=== PATIENT | female | born 2005 | race Caucasian/White ===

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

== ENCOUNTER 2025-03-06 12:03 | Emergency (ER) | payer OTHER, SELFPAY ==
--- NOTE | ~2025-03-06 | XR_ITS ---
EXAMINATION: XR finger 1st LT min 2V DATE: 03/06/2025 12:56 INDICATION: Left thumb nail injury TECHNIQUE: Dorsal palmar, lateral and oblique views of the left first digit were obtained COMPARISON: None FINDINGS: Bone alignment is normal. No fracture. Joint spaces are normal. Mild elevation the left thumb nail. S oft tissues are otherwise unremarkable. IMPRESSION: 1. No osseous abnormality. Reviewed, dictated and finalized at location B. IMPRESSION: 1. No osseous abnormality.
--- NOTE | 2025-03-06 12:05 | ED.UPPEXIN ---
HPI - Extremity Injury (Upper) General Chief Complaint: Wound/Laceration Stated Complaint: left thumb nail injury Time Seen by Provider: 03/06/25 12:04 Source: patient Mode of arrival: ambulatory Limitations: no limitations History of Present Illness HPI narrative: Kimberly is a 19-year-old female patient presenting to the clinic today with complaints of a left thumbnail injury. She reports she was working with a horse and the horse kicked her. Horse injured the left thumbnail. She denies any pain to the finger otherwise. Tetanus is up-to-date Related Data Allergies Allergy/AdvReac Type Severity Reaction Status Date / Time amoxicillin Allergy Mild Unknown Verified 03/06/25 12:13 Penicillins Allergy Unknown Unknown Verified 03/06/25 12:13 POTASSIUM CLAVULANATE Allergy Mild Unknown Uncoded 03/06/25 12:13 Review of Systems Review of Systems: Pertinent positives per HPI. Patient denies any fever, chills, rash, headache, visual changes, dizziness, cough, shortness of breath, chest pain, palpitations, nausea, vomiting, diarrhea, constipation, abdominal pain, or any urinary issues. PMFSH Comments At the time of my signature, I reviewed and agree with the nursing past medical, surgical, social, and family history. There is no relevant family history pertinent to the patient complaint. Exam Narrative: General: Well-developed, well nourished, in no apparent distress Head: Normocephalic, atraumatic. Cardio: Regular rate and rhythm, s1 and s2 normal, no murmur appreciated. Resp: Clear to auscultation bilaterally, no rhonchi, rales, wheezing or rubs. Musculoskeletal: No bone deformity, thumb nail intact but partially avulsed from the nail bed, tender to palpation, grossly normal range of motion, muscle strength strong and equal, peripheral pulse strong, no edema, no cyanosis, normal gait and station Course Course Emergency Course: Portions of this record may have been created with voice recognition software. Level of Care: Express Care Visit Vital Signs Vital signs: Vital Signs Temperature 36.6 C 03/06/25 12:16 Pulse Rate 65 03/06/25 12:16 Respiratory Rate 14 03/06/25 12:16 Blood Pressure 112/57 L 03/06/25 12:16 Pulse Oximetry 100 03/06/25 12:16 Oxygen Delivery Room Air 03/06/25 12:16 Temperature 36.6 C 03/06/25 12:16 Pulse Rate 65 03/06/25 12:16 Respiratory Rate 14 03/06/25 12:16 Blood Pressure 112/57 L 03/06/25 12:16 Pulse Oximetry 100 03/06/25 12:16 Oxygen Delivery Room Air 03/06/25 12:16 Vital signs reviewed Procedures Nail Trephination Nail Trephination #1: Nail Trephination Date: 03/06/25 Location (finger): left and thumb Sterile prep: betadine Method of drainage: nail cautery Procedure successful: Yes Patient tolerated procedure: well and no complications Complications: other (None) Nail Trephination Comment: Verbal consent obtained for nail trephination and nail bed repair. Risk and benefits explained and patient voiced understanding. Area was cleansed with betadine and a 27 gauge needle was then used to instill (6) ml of 1% lidocaine without epi into the base of the thumb to create a digital block. Area was prepped and draped using sterile technique. A 5suture on a p needle was used to place (1) interrupted suture to secure the nail back down to the nail bed on the medial side of the nail. Patient tolerated procedure well. Sterile dressing applied. Tetanus is up-to-date MDM - Extremity Injury (Upper) MDM Narrative Medical decision making narrative: At the time of visit patient is resting comfortably on the exam table. Patient appears to be nontoxic. Procedures:-cautery was used to place a hole in the nail-1 interrupted suture was placed to attach nail to the nail bed Diagnostics: X-ray the left thumb was negative for any sign of fracture or malalignment. Plan: Patient has a partial nail avulsion of the left thumbnail. One interrupted suture was used to secure the nail down to the nail bed. Will have patient follow-up with Dr. Fernando-hand specialist. Supportive measures were discussed with the patient and they voiced understanding discharge instructions and agrees to treatment plan. Return precautions reviewed Differential Diagnosis Differential diagnosis: Likely other (Thumb fracture, nail avulsion, thumb contusion) Discharge Plan Discharge Clinical Impression: Avulsion of nail of left thumb Patient Disposition: Home Condition: Stable Instructions: Antibiotic Form, Nail Avulsion (ED) Additional Instructions: X-rays of the left thumb is negative for any sign of fracture or malalignment 1 suture was placed to secure the nail to the nail bed Take doxycycline as prescribed Leave bandage on for 24 hours then may remove and apply band aide covering as needed. Keep wound clean and dry Skin sutures out in 7 days. Watch for signs and symptoms of infection- redness, streaking, swelling, purulent discharge, or increase in pain. Follow up with your PCP as needed Follow-up with Dr. Fernando- hand specialist- call today to schedule an appointment Patient Language: Japanese Prescriptions: New doxycycline monohydrate 100 mg capsule 100 mg PO BID 7 Days Qty: 14 0RF Follow-up/Referrals: Rosa Fernando MD [Physician] - 1 Day (Nail avulsion of the left thumbnail-no thumb fracture) UNKNOWN,DOCTOR [Primary Care Provider] - Time of Disposition: 13:21 Quality NIHSS Nursing Documentation ED NIHSS nursing documentation: reviewed/agree
[2025-03-06 12:16] VITALS: BP 112/57; PULSE 65; RESP 14; TEMP 36.6; O2SAT 100
[2025-03-06] MEDS: LIDOCAINE 1% LOCAL INJ 2 ML AMPUL 6 ML INFILTRATE (12:24)
== END 2025-03-06 13:30 | disposition home or self-care (01) ==
PROVIDERS: Emergency Provider Nurse Practitioner Family
DX: S61.102A Unspecified open wound of left thumb with damage to nail, initial encounter (principal); W55.12XA Struck by horse, initial encounter
CPT/HCPCS: 11740; 11760; 73140; 99213; G0463; J2003